=== PATIENT | male | born 1945 | race Hispanic/Latino ===

== ENCOUNTER → 2021-09-28 | Outpatient (CLI) | payer MEDICARE ==
[~2021-09-28] MED LIST: ALFU10TA9 PO; CALC-911 PO; CETI10TA87 PO; ENZY1CAP5 PO; FLAX100020 PO; GABA600T10 PO; LATA2.5D14 OU; NIFE-40 PO; TRAM300C3 PO; TURM500C9 PO; VIT1CAPS43 PO; [UNRECOGNIZED DRUG - CODE] PO
== END ==
LOC: SLP 20:43
PROVIDERS: ATTEND Internal Medicine
DX: G47.33 Obstructive sleep apnea (adult) (pediatric) (principal)
CPT/HCPCS: 95810

== ENCOUNTER → 2021-10-04 | Outpatient (CLI) | payer MEDICARE | LOC: SLP 20:46 | PROVIDERS: ATTEND Internal Medicine | DX: G47.33 Obstructive sleep apnea (adult) (pediatric) (principal) | CPT/HCPCS: 95811 ==

== ENCOUNTER → 2024-04-27 | Outpatient (CLI) | payer MEDICARE ==
[~2024-04-27] MED LIST changes: +ALFU10TA46 PO; -ALFU10TA9 PO; +GABA-1405 PO; -GABA600T10 PO
--- NOTE | 2024-05-02 16:23 | HMCSR ---
APPROVED REPORT EXAM: Two-dimensional and M-mode echocardiogram with Doppler and color Doppler. 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 2D Dimensions RVDd4.4 cmLVEF(%)59.7 (>50%)LVED Vol(simp.)121.0 mL IVSd1.0 (0.7-1.1cm)FS(%)32 %LVES Vol(simp.)45.6 mL LVDd5.3 (3.8-5.6cm)LA (2D)4.6 (1.6-4.0cm)LVEF(%, simp.)62 % PWd0.9 (0.7-1.1cm)Ao Root(2D)3.5 (2.0-3.7cm)LA ESV INDEX (4CH)39.00 mL/m2 IVSs1.5 cmLVOT diam2.4 (1.8-2.4cm)LA ESV INDEX (2CH)57.10 mL/m2 LVDs3.6 (2.5-4.0cm)LA ESV INDEX (BP)44.80 mL/m2 PWs1.6 cm M-Mode Dimensions EPSS0.9 cm LA (MM)4.5 (1.6-4.0cm) Ao Root(MM)3.2 (2.0-3.7cm) Aortic Valve AoV VTI0.3 mAo Mean GR5.0 mmHgLVOT VTI0.21 m MARIIA (VMAX)2.9 cm2AVA (VTI) 2.9 cm2 Mitral Valve MV E Vmax99.9 cm/sDECEL Wfhm194 ms MV A Vmax50.0 cm/sP 1/2 T106 ms E/A ratio2.0MVA (PHT)2.1 cm2 MR Max PG43 mmHg TDI E/E' Dhjxst07.2E/E' Lateral9.8 Medial E' Peak V5.80 cm/sLateral E' Peak V10.20 cm/s Pulmonary Valve PV Vmax1.0 m/s PV Peak GR3.6 mmHg Tricuspid Valve TR Vmax2.2 m/s TR Peak GR19.8 mmHg Left Ventricle The left ventricle is normal size. There is normal left ventricular wall thickness. LVEF is 55-60%. Right Ventricle The right ventricle is mildly dilated. The right ventricular systolic function is normal. Atria The left atrium is moderately dilated. The right atrium is moderately dilated. Aortic Valve The aortic valve is normal in structure. No aortic regurgitation is present. There is no aortic valvu lar stenosis. Mitral Valve The mitral valve is normal in structure. There is trace mitral regurgitation. There is no mitral valv e stenosis. Tricuspid Valve The tricuspid valve is normal in structure. There is trace tricuspid valve regurgitation. Pulmonic Valve The pulmonary valve is normal in structure. There is no pulmonic valvular regurgitation. Great Vessels The aortic root is normal in size. IVC is normal in size and collapses <50% with inspiration. Pericardium There is no pericardial effusion. Other Information Quality : Fair Conclusion The left ventricle is normal size. LVEF is 55-60%. The left atrium is moderately dilated. The right atrium is moderately dilated. There is trace mitral regurgitation. There is trace tricuspid valve regurgitation.
== END | disposition home or self-care (01) ==
LOC: RAH 12:31
PROVIDERS: ATTEND Internal Medicine Cardiovascular Disease
DX: I34.0 Nonrheumatic mitral (valve) insufficiency (principal)
CPT/HCPCS: 93306